=== PATIENT | female | born 1965 | race Caucasian/White ===

== ENCOUNTER 2018-08-09 07:34 | Day surgery (SDC) | payer OTHER ==
[2018-08-08 09:19] VITALS: BMI 22.6
[2018-08-09] MEDS ORDERED: GUM MASTIC/STORAX/MSAL/ALCOHOL 1 DRP DROPSBTL MC ONE (08:09)
[2018-08-09] MEDS ORDERED: BSS (NA/CA/MG/K) BALANCED SALT SOLUTION OPHTH SOLN 15 ML BOTTLE ONE (08:09)
[2018-08-09] MEDS ORDERED: BUPIVACAINE HCL 0.25% 125 MG/50 ML VIAL ONE (08:09)
[2018-08-09] MEDS ORDERED: PROPOFOL 20 ML ONE (08:21)
[2018-08-09] MEDS ORDERED: DEXAMETHASONE SOD PHOSPHATE 4 MG/1 ML VIAL ONE (08:30)
[2018-08-09] MEDS ORDERED: ONDANSETRON 4 MG/2 ML VIAL ONE (08:30)
[2018-08-09] MEDS ORDERED: KETOROLAC TROMETHAMINE 30 MG/1 ML VIAL ONE (08:30)
[2018-08-09] MEDS ORDERED: LIDOCAINE HCL 2% JELLY (5 ML/TUBE) ONE (08:30)
[2018-08-09] MEDS ORDERED: LIDOCAINE HCL/PF 2% SDV 5ML VIAL ONE (08:30)
[2018-08-09] MEDS ORDERED: BUPIVACAINE HCL/PF 0.25% (2.5MG/ML) 10 ML VIAL IJ ONE (08:50)
[2018-08-09] MEDS ORDERED: PROMETHAZINE HCL 25 MG/1 ML VIAL IVPB PRN (08:58)
[2018-08-09] MEDS ORDERED: ONDANSETRON 4 MG/2 ML VIAL IVPUSH PRN (08:58)
[2018-08-09] MEDS ORDERED: oxyCODONE HCL 5 MG TABLET PO PRN ×2 (08:58)
[2018-08-09 09:56] VITALS: PULSE 62
[2018-08-09 10:11] VITALS: BP 124/71; TEMP 97.9
--- NOTE | 2018-08-10 11:39 | OP ---
DATE OF OPERATION: 08/09/2018 PREOPERATIVE DIAGNOSIS: Right carpal tunnel syndrome. POSTOPERATIVE DIAGNOSIS: Right carpal tunnel syndrome. OPERATIVE PROCEDURE: Right endoscopic carpal tunnel release. SURGEON: Zach Harrison MD ANESTHESIA: General. COMPLICATIONS: None. ESTIMATED BLOOD LOSS: Minimal. INDICATIONS FOR PROCEDURE: The patient is a 52-year-old female with the above findings, indicated for operative treatment. The risks, benefits, and alternatives were discussed with the patient, and proper informed consent was obtained. PROCEDURE: After proper identification of the patient and the correct operative site, the patient was brought to the operating room and placed on the table with prominences well padded. General anesthesia was given. Right upper extremity was prepped and draped in the usual sterile fashion. Tourniquet was used. Right upper extremity was exsanguinated, and the tourniquet was inflated to 250 mmHg. Transverse incision made over the proximal wrist crease. Incision was taken sharply through the skin with blunt and sharp dissection through subcutaneous tissues. The antebrachial fascia was divided, and the carpal canal was entered. Soft tissue was freed from the undersurface of the transverse carpal ligament with an elevator. Hamate finder dilators were used to prepare the canal, and then, the Micro[employer] Endoscopic Carpal Tunnel Release System was inserted in the distal edge of the transverse carpal ligament, which was positively confirmed palpably and visually. Excellent visualization was achieved throughout the procedure, and at no time as any soft tissue allowed to interpose between the blade and the undersurface of the transverse carpal ligament. The blade was deployed, and the transverse carpal ligament was released in its entirely. Under direct mini-open approach, the distal 4 cm of antebrachial fascia were divided longitudinally. This provided complete release of the median nerve at the wrist. Wound was repaired with a 4-0 Monocryl suture. Steri-Strips and sterile dressings were applied. The patient was brought to the recovery room in stable condition. She tolerated the procedure well. ZACH HARRISON M.D. [id number]
== END 2018-08-09 10:13 | disposition home or self-care (01) ==
LOC: FASU 07:34
PROVIDERS: ATTEND Orthopaedic Surgery Hand Surgery
PROC: 01N54ZZ Release Median Nerve, Percutaneous Endoscopic Approach (ICD-10-PCS; principal; 2018-08-09 08:30)
DX: G56.01 Carpal tunnel syndrome, right upper limb (principal)
CPT/HCPCS: 84703; 94760